=== PATIENT | female | born 1960 | race Caucasian/White ===

== ENCOUNTER → 2019-01-18 | Outpatient (CLI) | payer OTHER ==
[~2019-01-18] MED LIST: Allergy Medicin25 MG PO; HYDR1TAB94 PO; LEVFLO500 PO; LEVSOD88 PO; OMEP20ER PO; ONDA4ODT SL; OXYACE5T
[2019-01-18 12:15] LABS: Source, Urine Clean Catch
[2019-01-18 15:27] LABS: Bilirubin, Urine Neg (Neg); Blood, Urine Neg (Neg); Glucose Qualitative, Urine Neg (Neg); Ketones, Urine Neg (Neg); Leukocyte Esterase, Urine Neg (Neg); Nitrite, Urine Neg (Neg); Protein, Urine Neg (Neg); Specific Gravity, Urine 1.005 (1.003-1.022); Urobilinogen, Urine NORM (Normal)
[2019-01-18 15:30] LABS: Appearance, Urine Clear (Clear); Color, Urine Yellow (P-Yellow)
[2019-01-19 06:42] LABS: Candida species (DNA Probe) Negative (NEGATIVE); G. vaginalis (DNA Probe) Negative (NEGATIVE); T. vaginalis (DNA Probe) Negative (NEGATIVE)
[2019-01-20 15:06] LABS: HPV 16 Negative (Negative); HPV 18 Negative (Negative); HPV OTHER HR TYPES Negative (Negative)
== END | disposition home or self-care (01) ==
LOC: LAB 11:59 → LAB SHORT 11:59
PROVIDERS: Nurse Practitioner Obstetrics & Gynecology
DX: Z01.419 Encounter for gynecological examination (general) (routine) without abnormal findings (principal); N76.0 Acute vaginitis; R35.0 Frequency of micturition
CPT/HCPCS: 81003; 87480; 87510; 87624; 87660; G0123

== ENCOUNTER 2020-09-14 06:53 | Day surgery (SDC) | payer OTHER ==
[~2020-09-14] VITALS: Ht 154.9 cm; Wt 107.7 kg
[~2020-09-14 06:53] MED LIST changes: +MOME.1TO TOP
--- NOTE | 2020-09-14 11:53 | NUR ---
PT TO STEP AWAKE, CONVERSING WITH STAFF. C/O SURGICAL HEAD/SCALP PAIN 01/27 AND WOULD LIKE PAIN MEDICATION FOR THIS. VSS. NO BLEEDING OR SWELLING NOTED.
--- NOTE | 2020-09-14 12:25 | NUR ---
PT WAS MED WITH PO NORCO FOR C/O SCALP PAIN/PRESSURE. TOLERATING PO INTAKE WITHOUT DIFFICULTY. NO NAUSEA.
--- NOTE | 2020-09-14 12:54 | NUR ---
PT DC HOME VIA . IV DC PRIOR TO DC TIP INTACT. PT TOLERATED WELL. REVIEWED DC INSTRUCTIONS WITH PATIENT WHO VERBALIZED UNDERSTANDING OF ALL INSTRUCTIONS GIVEN. PT DC HOME WITH MOTHER TO DRIVE HER.
== END 2020-09-14 23:47 | disposition home or self-care (01) ==
LOC: ORSCMMR 06:53 → ORD 08:30 → ORSCMMR 23:47
PROVIDERS: Surgery
PROC: 0HB0XZX Excision of Scalp Skin, External Approach, Diagnostic (ICD-10-PCS; principal; 2020-09-14 08:30)
PROC: 0JX00ZC Transfer Scalp Subcutaneous Tissue and Fascia with Skin, Subcutaneous Tissue and Fascia, Open Approach (ICD-10-PCS; principal; 2020-09-14 08:30)
DX: C44.41 Basal cell carcinoma of skin of scalp and neck (principal); I10 Essential (primary) hypertension; K21.9 Gastro-esophageal reflux disease without esophagitis; E66.01 Morbid (severe) obesity due to excess calories; Z68.41 Body mass index [BMI] 40.0-44.9, adult; Z79.899 Other long term (current) drug therapy
CPT/HCPCS: 88305; 88329; A9270; J0690; J1100; J1885; J2250; J2405; J2704; J3010; J7120

== ENCOUNTER 2021-10-16 12:48 | Day surgery (SDC) | payer OTHER ==
[~2021-10-16] VITALS: Ht 152.4 cm; Wt 107.4 kg
== END 2021-10-16 14:11 | disposition home or self-care (01) ==
LOC: ORSCSDS 12:48
PROVIDERS: Internal Medicine Gastroenterology
PROC: 0DJD8ZZ Inspection of Lower Intestinal Tract, Via Natural or Artificial Opening Endoscopic (ICD-10-PCS; principal; 2021-10-16 14:00)
DX: Z12.11 Encounter for screening for malignant neoplasm of colon (principal); Z86.010 Personal history of colon polyps; Z85.048 Personal history of other malignant neoplasm of rectum, rectosigmoid junction, and anus; Z80.0 Family history of malignant neoplasm of digestive organs; K64.8 Other hemorrhoids; K21.9 Gastro-esophageal reflux disease without esophagitis; G47.33 Obstructive sleep apnea (adult) (pediatric); K57.30 Diverticulosis of large intestine without perforation or abscess without bleeding; K22.70 Barrett's esophagus without dysplasia; E66.01 Morbid (severe) obesity due to excess calories; Z68.42 Body mass index [BMI] 45.0-49.9, adult; Z79.899 Other long term (current) drug therapy
CPT/HCPCS: A9270; J2704; J7120

== ENCOUNTER 2021-11-26 19:37 | Emergency (ER) | payer OTHER ==
[~2021-11-26] VITALS: Ht 152.4 cm; Wt 104.3 kg
[2021-11-26 20:41] LABS: BASOPHILS ABSOLUTE AUTO 0.03 K/mm3 (0.00-0.23); BASOPHILS PERCENT AUTO 0 % (0-2); EOSINOPHILS ABSOLUTE AUTO 0.03 K/mm3 (0.00-0.68); EOSINOPHILS PERCENT AUTO 0 % (0-6); Hematocrit 46.3 % (33.0-51.0); Hemoglobin 14.9 g/dL (11.5-16.0); IMMATURE GRAN ABSOLUTE AUTO 0.06 K/mm3 (0.00-0.10); IMMATURE GRAN PERCENT AUTO 1 % (0-1); LYMPHOCYTES ABSOLUTE AUTO 1.98 K/mm3 (0.84-5.20); LYMPHOCYTES PERCENT AUTO 22 % (21-46); MONOCYTES ABSOLUTE AUTO 0.97 K/mm3 (0.16-1.47); MONOCYTES PERCENT AUTO 11 % (4-13); Mean Corpuscular HGB 28.2 pg (26.0-34.0); Mean Corpuscular HGB Conc 32.2 g/dL (31.5-36.5); Mean Corpuscular Volume 88 fL (80-100); Mean Platelet Volume 11.5 fL (9.1-12.4); NEUTROPHILS ABSOLUTE AUTO 5.87 K/mm3 (1.96-9.15); NEUTROPHILS PERCENT AUTO 66 % (41-73); Platelet Count 274 K/mm3 (150-400); RDW Coefficient Variation 15.6 % (11.7-14.2); RDW Standard Deviation 50.2 fL (35.1-46.3); Red Blood Cell Count 5.29 M/mm3 (3.80-5.20); White Blood Cell Count 8.94 K/mm3 (4.00-11.30)
[2021-11-26 21:02] LABS: Alanine Aminotransfer (ALT/SGP 54 U/L (12-78); Albumin, Blood 3.8 g/dL (3.4-5.0); Alk Phos 87 U/L (50-136); Anion Gap 10 mmol/L (6-16); Aspartate Aminotrans (AST/SGOT 43 U/L (12-37); Bilirubin, Total 0.4 mg/dL (0.1-1.0); Blood Urea Nitrogen 15 mg/dL (8-24); Bun/Creatinine Ratio 18.9 (12.0-20.0); CO2, Blood 21 mmol/L (21-32); Calcium, Blood 9.2 mg/dL (8.5-10.1); Chloride, Blood 106 mmol/L (98-108); Globulin, Blood 3.8 g/dL (2.2-4.0); Glomerular Filtration Rate >60 (60-); Glucose, Blood 118 mg/dL (70-99); Potassium, Blood 3.4 mmol/L (3.5-5.5); Sodium, Blood 137 mmol/L (136-145); Total Protein, Blood 7.6 g/dL (6.4-8.2)
== END 2021-11-26 23:32 | disposition home or self-care (01) ==
LOC: ER 19:37
PROVIDERS: Physician Assistant
DX: A08.4 Viral intestinal infection, unspecified (principal); Z88.0 Allergy status to penicillin; Z91.09 Other allergy status, other than to drugs and biological substances; Z79.899 Other long term (current) drug therapy
CPT/HCPCS: 36415; 80053; 83690; 83735; 85025; A9270; J2405; J7030

== ENCOUNTER 2025-05-19 13:09 | Day surgery (SDC) | payer OTHER ==
[~2025-05-19] VITALS: Ht 154.9 cm; Wt 192.6 kg
[~2025-05-19 13:09] MED LIST changes: +Glycopyrrolate 0.2 MG/ML 1MLVIAL ONE; +Ondansetron HCl 2 MG / ML 2ML Vial ONE; +ePHEDrine Sulfate 50 MG/ML 1ML Injection ONE
[2025-05-19 16:56] VITALS: BP 116/77
== END 2025-05-19 17:00 | disposition home or self-care (01) ==
LOC: ORSCSDS 13:09
PROVIDERS: Internal Medicine Gastroenterology
PROC: 0DBL8ZX Excision of Transverse Colon, Via Natural or Artificial Opening Endoscopic, Diagnostic (ICD-10-PCS; principal; 2025-05-19 15:15)
PROC: 0DBK8ZX Excision of Ascending Colon, Via Natural or Artificial Opening Endoscopic, Diagnostic (ICD-10-PCS; principal; 2025-05-19 15:15)
DX: Z12.11 Encounter for screening for malignant neoplasm of colon (principal); Z85.048 Personal history of other malignant neoplasm of rectum, rectosigmoid junction, and anus; Z86.0101 Personal history of adenomatous and serrated colon polyps; Z80.0 Family history of malignant neoplasm of digestive organs; D12.2 Benign neoplasm of ascending colon; D12.3 Benign neoplasm of transverse colon; Z90.49 Acquired absence of other specified parts of digestive tract; K57.30 Diverticulosis of large intestine without perforation or abscess without bleeding; K64.4 Residual hemorrhoidal skin tags; K22.70 Barrett's esophagus without dysplasia; K21.9 Gastro-esophageal reflux disease without esophagitis; G47.33 Obstructive sleep apnea (adult) (pediatric); E66.01 Morbid (severe) obesity due to excess calories; Z68.36 Body mass index [BMI] 36.0-36.9, adult; Z85.41 Personal history of malignant neoplasm of cervix uteri; Z85.828 Personal history of other malignant neoplasm of skin; Z79.899 Other long term (current) drug therapy
CPT/HCPCS: 82947; 88305; J2003; J2405; J2704; J7120